=== PATIENT | male | born 1955 ===

== ENCOUNTER 2021-04-29 08:31 | Outpatient (CLI) | payer OTHER ==
[2021-04-29] MEDS ORDERED: GABAPENTIN800 M1 PO (09:01)
[2021-04-29] MEDS ORDERED: RESTORIL15 MG PO (09:01)
[2021-04-29] MEDS ORDERED: ZANAFLEX2 M1 PO (09:02)
[2021-04-29] MEDS ORDERED: PEPCID AC10 MG PO (09:02)
[2021-04-29] MEDS ORDERED: ZESTRIL2.5 MG PO (09:02)
[2021-04-29] MEDS ORDERED: ACID REDUCER20 M1 PO (09:02)
== END 2021-04-29 08:39 | disposition home or self-care (01) ==
LOC: LAB 08:31
PROVIDERS: ATTEND Orthopaedic Surgery Sports Medicine
DX: D64.89 Other specified anemias (principal); Z20.828 Contact with and (suspected) exposure to other viral communicable diseases; M77.01 Medial epicondylitis, right elbow; I10 Essential (primary) hypertension

== ENCOUNTER 2021-05-02 08:45 | Day surgery (SDC) | payer OTHER ==
[~2021-05-02 08:45] MED LIST: ACID REDUCER20 M1 PO; GABAPENTIN800 M1 PO; PEPCID AC10 MG PO; RESTORIL15 MG PO; ZANAFLEX2 M1 PO; ZESTRIL2.5 MG PO
[2021-05-02] MEDS ORDERED: DUI500 PO (11:37)
[2021-05-02] MEDS ORDERED: OXYC1TAB9 PO (11:37)
== END 2021-05-02 13:10 | disposition home or self-care (01) ==
LOC: CIR.AMB 08:45
PROVIDERS: ATTEND Orthopaedic Surgery Sports Medicine
DX: M77.11 Lateral epicondylitis, right elbow (principal); Z20.822 Contact with and (suspected) exposure to COVID-19